=== PATIENT | female | born 1965 ===

== ENCOUNTER → 2017-01-24 20:07 | Outpatient (CLI) | payer OTHER | END | disposition home or self-care (01) | LOC: D.LABREF 20:07 | DX: Z11.59 Encounter for screening for other viral diseases (principal); Z00.00 Encounter for general adult medical examination without abnormal findings ==

== ENCOUNTER → 2017-01-26 15:52 | Outpatient (CLI) | payer OTHER ==
[2017-01-26 16:39] LABS: ANION GAP 14.4 mmol/L (8-16); BILIRUBIN - TOTAL 0.25 mg/dL (0.2-1.3); CALCIUM 9.6 mg/dL (8.5-10.1); CHOL - HDL RATIO 2.6 ratio (2.3-4.1); CREATININE - SERUM 0.9 mg/dL (0.6-1.3); LDL-HDL RATIO 1.1 ratio (1.5-3.5); POTASSIUM - SERUM 4.4 mmol/L (3.5-5.1); PROTEIN - SERUM 7.5 g/dL (6.4-8.2)
== END | disposition home or self-care (01) ==
LOC: D.LABREF 15:52
PROVIDERS: Family Medicine
DX: E78.5 Hyperlipidemia, unspecified (principal)